=== PATIENT | male | born 1975 | race Two or more races ===

== ENCOUNTER 2017-06-23 20:53 | Emergency (ER) | payer OTHER ==
[~2017-06-23] VITALS: Ht 165.1 cm; Wt 90.0 kg
[2017-06-24] MEDS ORDERED: ACETAMINOPHEN 500MG TABLET PO SCH (01:30)
[2017-06-24 01:55] VITALS: BP 148/87
== END 2017-06-24 02:06 | disposition home or self-care (01) ==
LOC: ER 21:00
DX: S92.421A Displaced fracture of distal phalanx of right great toe, initial encounter for closed fracture (principal); W20.8XXA Other cause of strike by thrown, projected or falling object, initial encounter; Y93.89 Activity, other specified; Y92.89 Other specified places as the place of occurrence of the external cause; Y99.8 Other external cause status; Z98.890 Other specified postprocedural states
CPT/HCPCS: 29515; 73630; 99284

== ENCOUNTER 2018-02-28 00:50 | Emergency (ER) | payer OTHER ==
[~2018-02-28] VITALS: Ht 167.6 cm; Wt 93.0 kg
[2018-02-28] MEDS ORDERED: FAMOTIDINE 20MG/2ML VIAL IV ONE (01:45)
[2018-02-28] MEDS ORDERED: DIPHENHYDRAMINE 50MG CAPSULE PO ONE (01:45)
[2018-02-28] MEDS ORDERED: METHYLPREDNISOLONE SOD SUCC 125 MG/2 ML VIAL IV ONE (01:45)
[2018-02-28 04:00] VITALS: BP 133/88
== END 2018-02-28 04:23 | disposition home or self-care (01) ==
LOC: ER 04:19
DX: T78.40XA Allergy, unspecified, initial encounter (principal); F17.200 Nicotine dependence, unspecified, uncomplicated; X58.XXXA Exposure to other specified factors, initial encounter
CPT/HCPCS: 96374; 96375; 99284; J2930; J3490; Z7610; Q0163